=== PATIENT | male | born 1990 | race Hispanic/Latino ===

== ENCOUNTER 2019-02-07 04:49 | Emergency (ER) | payer SELFPAY ==
[2019-02-07] MEDS ORDERED: Ketorolac Tromethamine 30 MG/ML VIAL ONE (05:29)
== END 2019-02-07 06:09 | disposition home or self-care (01) ==
LOC: SCSER 04:49
DX: J10.1 Influenza due to other identified influenza virus with other respiratory manifestations (principal)
CPT/HCPCS: 87804; 96372; 99283; J1885

== ENCOUNTER 2020-05-28 10:58 | Emergency (ER) | payer OTHER, SELFPAY ==
[2020-05-28 14:03] LABS: SARS-CoV-2 PCR by NAA Not Detected (NotDetected)
== END 2020-05-28 11:44 | disposition home or self-care (01) ==
LOC: ERS 10:58
DX: J02.9 Acute pharyngitis, unspecified (principal); M79.10 Myalgia, unspecified site; R06.02 Shortness of breath; Z20.822 Contact with and (suspected) exposure to COVID-19
CPT/HCPCS: 87635; 99283; U0003; U0005